=== PATIENT | female | born 1960 | race Caucasian/White ===

== ENCOUNTER 2017-03-25 13:31 | Emergency (ER) | payer OTHER ==
[~2017-03-25] VITALS: Ht 157.5 cm; Wt 52.2 kg
[~2017-03-25 13:31] MED LIST: VOLTAREN50 MG PO
[2017-03-25 17:05] LABS: ABSOLUTE BASOPHIL COUNT 0 /CUMM (0.0-0.2); ABSOLUTE EOSINOPHIL COUNT 0.1 /CUMM (0.0-0.7); ABSOLUTE GRANULOCYTE CT 6.2 /CUMM (1.4-6.5); ABSOLUTE LYMPH COUNT 2.9 /CUMM (1.2-3.4); ABSOLUTE MONOCYTE COUNT 0.4 /CUMM (0.10-0.60); BASOPHIL % 0.4 % (0.0-2.0); EOSINOPHIL % 1.3 % (0-5); GRANULOCYTE % 64.5 % (42.2-75.2); HEMATOCRIT 44.4 % (37-47); MEAN CORPUSCULAR HGB 29.1 PG (27.0-31.0); MEAN CORPUSCULAR HGB CONC 33.4 G/DL (33.0-37.0); MEAN CORPUSCULAR VOLUME 87.2 FL (81.0-99.0); MEAN PLATELET VOLUME 7.8 FL (7.4-10.4); PLATELET COUNT 263 /CUMM (130-400); RBC DISTRIBUTION WIDTH 12.5 % (11.5-14.5); RED BLOOD CELL CT 5.09 /CUMM (4.20-5.40); WHITE BLOOD CELL COUNT 9.6 /CUMM (4.8-10.8)
--- NOTE | 2017-03-25 17:44 | RADIOLOGY REPORT ---
EXAMINATION: CHEST 1 VIEW CLINICAL INFORMATION: Chest pain. COMPARISON: None. TECHNIQUE: An AP view of the chest is provided. FINDINGS: The cardiac silhouette is not enlarged. The mediastinal and hilar contours are unremarkable. There are neither pleural effusions nor pneumothoraces. There are no consolidations. The lungs are hyperinflated. There is moderate leftward curvature to the thoracic spine. IMPRESSION: No evidence for acute disease. Lung hyperinflation.
--- NOTE | 2017-03-25 18:13 | ED AMS/SEIZURE/WEAK/DIZZY ---
History of Present Illness General Chief Complaint: Dizziness Stated Complaint: DIZZINESS Source: patient, old records Exam Limitations: no limitations Vital Signs & Intake/Output Vital Signs & Intake/Output Vital Signs Date Time Temp Pulse Resp B/P B/P Pulse O2 O2 Flow FiO2 Mean Ox Delivery Rate 03/25 1640 96.7 105 20 204/104 96 Room Air 03/25 1449 98.4 101 18 173/113 98 Room Air Allergies Coded Allergies: No Known Allergies (01/10/16) Reconcile Medications Amoxicillin 875 MG TABLET 1 TAB PO BID sinusitis Diazepam (Valium) 2 MG TABLET 1-2 TAB PO Q8P PRN anxiety Scopolamine Hydrobromide (Transderm-Scop) 1.5MG/3DAY PATCH.TD.3 1 PAT TOP Q3D vertigo apply to the hairless area behind 1 ear Triage Note: C/O RINGING IN EARS A FEW YEARS, WORSE TODAY, ALSO C/O DIZZIESS AND HEART PALPITATIONS, STATES "I LOST A TOOTH LAST WEEK". "I CANT STOP SHAKING". ALSO C/O SOB X "YEARS". Triage Nurses Notes Reviewed? yes Onset: Last week Duration: day(s):, constant, continues in ED, getting worse Timing: recent history Severity: moderate, severe Modifying Factors: Improves With: immobilization. Worsens With: movement. Associated Symptoms: cough, chest pain LMP (ages 10-50): post menopausal : No Patient currently breastfeeds: No HPI: Several days prior to admission patient complains of increasing dizziness change in hearing muffled nasal congestion chronic nonproductive cough and left-sided sharp chest pain nonradiating worse with coughing and anxiety. She denies fever chills nausea vomiting diarrhea abdominal pain shortness of breath headache dysuria rash bleeding. Past History Travel History Traveled to [place] past 21 day No Medical History Any Pertinent Medical History? 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 No Review of Systems Review of Systems Constitutional: Reports: no symptoms. EENTM: Reports: blurred vision, hearing changes, nasal congestion. Respiratory: Reports: see HPI, cough. Cardiovascular: Reports: see HPI, chest pain. GI: Reports: no symptoms. Genitourinary: Reports: no symptoms. Musculoskeletal: Reports: no symptoms. Skin: Reports: no symptoms. Neurological/Psychological: Reports: see HPI, anxiety. Hematologic/Endocrine: Reports: no symptoms. Immunologic/Allergic: Reports: no symptoms. All Other Systems: Reviewed and Negative Physical Exam Physical Exam General Appearance: well developed/nourished, alert, awake, anxious, mild distress, moderate distress, thin Head: atraumatic, normal appearance Eyes: Bilateral: normal appearance, PERRL, EOMI, other (nystagmus). Ears, Nose, Throat: normal pharynx, normal ENT inspection, hearing grossly normal Neck: normal inspection, supple, full range of motion, no midline tenderness Respiratory: normal breath sounds, chest non-tender, no respiratory distress, quiet respiration, lungs clear Cardiovascular: regular rate/rhythm, normal peripheral pulses, norml femoral pulses equa Peripheral Pulses: 4+ carotid (R), 4+ carotid (L) Gastrointestinal: normal bowel sounds, soft, non-tender, no organomegaly Back: normal inspection, normal range of motion, no vertebral tenderness Extremities: normal range of motion, no ligament instability Neurologic/Psych: no motor/sensory deficits, awake, alert, oriented x 3, normal gait, 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 Skin: intact, normal color, warm/dry Lymphatic: no anterior cervical mary Core Measures ACS in differential dx? Yes ASA ordered for poss ACS? No-ACS ruled out CVA/TIA Diagnosis: No Severe Sepsis Present: No Septic Shock Present: No Progress Differential Diagnosis: benign positional vertigo, CVA/stroke, drug intoxication , encephalitis, electrolyte imbalance, hypoglycemia Plan of Care: Orders Procedure Date/time Status TROPONIN LEVEL 03/25 1645 Complete COMPREHENSIVE METABOLIC PANEL 03/25 1645 Complete CBC WITHOUT DIFFERENTIAL 03/25 1645 Complete EKG 03/25 1452 Active Laboratory Tests 03/25/17 1650: Anion Gap 12, Estimated GFR > 60, BUN/Creatinine Ratio 25.0, Glucose 117 H, Calcium 9.6, Total Bilirubin 0.5, AST 17, ALT 30, Alkaline Phosphatase 106, Troponin I < 0.01, Total Protein 7.7, Albumin 4.6, Globulin 3.1, Albumin/ Globulin Ratio 1.5, CBC w Diff NO MAN DIFF REQ, RBC 5.09, MCV 87.2, MCH 29.1, RDW 12.5, MPV 7.8, Gran % 64.5, Lymphocytes % 29.8, Monocytes % 4.0, Eosinophils % 1.3, Basophils % 0.4, Absolute Granulocytes 6.2, Absolute Lymphocytes 2.9, Absolute Monocytes 0.4, Absolute Eosinophils 0.1, Absolute Basophils 0, PUBS MCHC 33.4 Diagnostic Imaging: Viewed by Me: Radiology Read, CT Scan. Discussed w/RAD: Radiology Read, CT Scan. Radiology Impression: no acute abnormality CXR Impression: no acute abnormality Initial ED EKG: normal axis, normal intervals, normal p-waves, normal QRS complex, normal sinus rhythm, no ST T wave changes Departure Departure Time of Disposition: 1843 Disposition: HOME OR SELF CARE Condition: Stable Clinical Impression Primary Impression: Vertigo Secondary Impressions: Anxiety Hypertension Sinusitis Qualifiers: Sinusitis location: unspecified location Chronicity: subacute Qualified Code: J01.90 - Acute sinusitis, unspecified Referrals: RICHARD GALLOWAY,[facility] Departure Forms: Customer Survey General Discharge Information Prescriptions: Current Visit Scripts Amoxicillin 1 TAB PO BID #20 TAB Scopolamine Hydrobromide (Transderm-Scop) 1 PAT TOP Q3D #4 PAT apply to the hairless area behind 1 ear Diazepam (Valium) 1-2 TAB PO Q8P PRN anxiety #30 TAB
--- NOTE | 2017-03-25 18:37 | CT SCAN REPORT ---
EXAMINATION: CT HEAD WITHOUT CONTRAST CLINICAL INFORMATION: Dizziness, hearing changes. Labyrinthitis. COMPARISON: None. TECHNIQUE: Contiguous axial images of the brain were obtained without IV contrast. DLP: 521 mGy-cm. FINDINGS: There are no pathologic extra-axial fluid collections. The lateral, third, fourth ventricles are nondilated and concordant with the appearance of the sulci. There is no evidence for acute intraparenchymal hemorrhage or infarct. There is neither mass nor mass effect. There is no shift of midline structures. The paranasal sinuses and mastoid air cells are clear. There are no osseous lesions. IMPRESSION: No evidence for acute intracranial injury.
[2017-03-25] MEDS ORDERED: VALIUM2 M1 PO (19:05)
[2017-03-25] MEDS ORDERED: TRANSDERM-SCOP1 EACH TOP (19:05)
[2017-03-25] MEDS ORDERED: AMOXICILLIN875 M1 PO (19:05)
[2017-03-25 19:10] VITALS: BP 182/102
== END 2017-03-25 19:12 ==
LOC: ERH 13:31
PROVIDERS: Emergency Medicine
DX: R42 Dizziness and giddiness (principal); F41.9 Anxiety disorder, unspecified; J32.9 Chronic sinusitis, unspecified; I10 Essential (primary) hypertension
CPT/HCPCS: 93005; 93010